=== PATIENT | male | born 1995 | race Caucasian/White ===

== ENCOUNTER → 2019-11-13 15:29 | Outpatient (BNVA) | payer OTHER, SELFPAY | PROVIDERS: Family Provider General Practice; Visit Provider Nurse Practitioner | DX: S60.221A Contusion of right hand, initial encounter (principal); W22.09XA Striking against other stationary object, initial encounter | CPT/HCPCS: 73130 ==

== ENCOUNTER → 2019-12-13 15:27 | Outpatient (BNVA) | payer OTHER, SELFPAY | PROVIDERS: Family Provider General Practice; Visit Provider Specialist | DX: S69.91XA Unspecified injury of right wrist, hand and finger(s), initial encounter (principal); W19.XXXA Unspecified fall, initial encounter | CPT/HCPCS: 73130 ==

== ENCOUNTER 2019-12-18 14:46 | Outpatient (CLI) | payer OTHER, SELFPAY ==
--- NOTE | 2019-12-18 15:00 | CT_ITS ---
WS: [id number] CT RIGHT HAND, NONCONTRAST, 3-D. HISTORY: pain Technique: All CT scans at [facility] use at least one of these dose optimization techniq ues: automated exposure control; mA and/or kV adjustment per patient size (includes targeted exams wh ere dose is matched to clinical indication); or iterative reconstruction. DLP: 474.97 mGycm COMPARISON: 12/13/2019 Minimally displaced fracture along the dorsal surface of the hamate. Fracture displaced by 2 mm. well -corticated bipartite hamate is again identified. There are a few small osseous densities between the hamate and fifth metacarpal. These tiny osseous densities may be fragments from the hamate. Less lik ector the proximal metacarpal. No additional fractures are confirmed. Small amount of soft tissue swel ling over the dorsal hand. CT/CT hand RT wo con* [id number] IMPRESSION: 1. Minimally displaced fracture involving the dorsal surface of the hamate. Mi ld separation by 2 mm. Fracture line is still evident. 2. No additional fractures. 3. Bipartite of the hamate.
== END 2019-12-18 14:47 | disposition home or self-care (01) ==
LOC: RADWPI 14:49
PROVIDERS: Visit Provider Specialist
DX: S62.141A Displaced fracture of body of hamate [unciform] bone, right wrist, initial encounter for closed fracture (principal); X58.XXXA Exposure to other specified factors, initial encounter
CPT/HCPCS: 73200